=== PATIENT | male | born 1970 | race Caucasian/White ===

== ENCOUNTER 2016-11-21 08:49 | Outpatient (CLI) | payer BC ==
[~2016-11-21] VITALS: Ht 177.8 cm; Wt 88.6 kg
[2016-11-21] MEDS ORDERED: CORDARONE200 MG/TAB PO (09:11)
[2016-11-21] MEDS ORDERED: ZOCOR 20MG20 MG PO (09:11)
[2016-11-21 09:12] VITALS: BP 157/107; PULSE 72; TEMP 98.1
[2016-11-21] MEDS ORDERED: ELIQUIS 5MG PO (09:12)
[2016-11-21] MEDS ORDERED: CEPHALEXIN500 M1 PO (11:24)
== END 2016-11-21 11:53 | disposition home or self-care (01) ==
LOC: COL.RAD 08:49
DX: I48.91 Unspecified atrial fibrillation (principal)
CPT/HCPCS: 27124; C1764